=== PATIENT | male | born 2000 | race Caucasian/White ===

== ENCOUNTER → 2020-12-15 | Outpatient (CLI) | payer BC ==
--- NOTE | 2020-12-15 10:41 | RAD ---
EXAM: Right tibia and fibula, 2 views. HISTORY: Fracture. COMPARISON: None. FINDINGS: 2 views of the right tibia and fibular obtained. There are nondisplaced tibial and fibular diaphyseal fractures with surrounding callus formation due to partial healing. There is no suspicious lytic or sclerotic osseous lesion. There is no foreign body. IMPRESSION: Healing nondisplaced tibial and fibular diaphyseal fractures. Electronically signed by: Silvina Sr MD (12/15/2020 10:39 AM) [id number]
== END ==
LOC: RAD 09:58
PROVIDERS: ATTEND Orthopaedic Surgery
DX: S82.401D Unspecified fracture of shaft of right fibula, subsequent encounter for closed fracture with routine healing (principal); S82.201D Unspecified fracture of shaft of right tibia, subsequent encounter for closed fracture with routine healing; X58.XXXD Exposure to other specified factors, subsequent encounter
CPT/HCPCS: 73590